=== PATIENT | male | born 1945 | race Caucasian/White ===

== ENCOUNTER 2018-09-09 12:43 | Emergency (ER) | payer MEDICARE ==
[2018-09-09] MEDS ORDERED: POTASSIUM CHLORIDE 20 MEQ TABLET PO ONE ×2 (13:08→15:50)
[2018-09-09] MEDS ORDERED: SOD CHLOR 0.9% WITH KCL 40MEQ 40 MEQ/1,000 ML IV.SOLN IV ONE (13:08)
--- NOTE | 2018-09-09 13:12 | Emergency Department Record ---
History of Present Illness - General Chief complaint: General Stated complaint: LOW POTASSIUM Time Seen by Provider: 09/09/18 12:50 Source: Patient, Family Mode of Arrival: Ambulatory Limitations: No limitations - History of Present Illness Initial comments: The patient is here with family due to generalized weakness for about a month. He has been having problems with low potassium recently due to chronic diarrhea and being placed on Lasix due to leg edema. The patient was [place] [facility] [place] 2 days ago due to a K+ of 2.0. He received IV replacement and was sent home. Today he had it rechecked as an outpatient and it was 2.4 so his ordering physi monica from [facility] sent him to the ER. The patient denies any pain, fever, nausea, vomiting or confusion. He does have a hx of Multiple Myeloma and his last chemo was a month ago. MD Complaint: Generalized weakness Onset/Timin -: Month(s) Location: Generalized - Chong Coma Scale Eye Response: (4) Open spontaneously Motor Response: (6) Obeys commands Verbal Response: (5) Oriented Gile Total: 15 - Related Data Home Medications Medication Instructions Recorded Confirmed Last Taken Aspirin [Ecotrin] 81 mg PO DAILY 09/09/18 09/09/18 09/09/18 Cephalexin [Keflex] 500 mg PO QID 09/09/18 09/09/18 09/09/18 Dexamethasone 20 mg PO WEEKLY 09/09/18 09/09/18 3 Weeks Ago ~08/19/18 Diphenhydramine HCl [Benadryl] 25 mg PO Q12HR PRN 09/09/18 09/09/18 Unknown Diphenoxylate HCl/Atropine 1 tab PO TID 09/09/18 09/09/18 09/09/18 [Diphenoxylate-Atrop 2.5-0.025] Escitalopram Oxalate [Lexapro] 10 mg PO DAILY 09/09/18 09/09/18 09/09/18 Gabapentin [Neurontin] 200 mg PO TID 09/09/18 09/09/18 09/09/18 Glucos Sul 2Kcl/MSM/Chond/C/Mn 1 cap PO DAILY 09/09/18 09/09/18 09/09/18 [Glucosamine Chondroitin Cap] Hydrocodone/Acetaminophen [[place] 1 tab PO DAILY PRN 09/09/18 09/09/18 Unknown 5-325 Tablet] Lenalidomide [Revlimid] 5 mg PO DAILY 09/09/18 09/09/18 09/09/18 Ondansetron HCl [Zofran] 4 mg PO Q6HR PRN 09/09/18 09/09/18 Unknown Pantoprazole Sodium [Protonix] 40 mg PO DAILY 09/09/18 09/09/18 09/09/18 Prochlorperazine Maleate 10 mg PO DAILY 09/09/18 09/09/18 09/09/18 Allergies Allergy/AdvReac Type Severity Reaction Status Date / Time No Known Drug Allergies Allergy Verified 09/09/18 13:00 Travel Screening - Travel/Exposure Within Last 30 Days Have you traveled within the last 30 days?: No - Travel Symptoms Symptom Screening: None Review of Systems Constitutional: Reports: Malaise. Denies: Chills, Fever Eyes: Denies: Eye discharge ENT: Denies: Congestion Respiratory: Denies: Cough Cardiovascular: Denies: Arrhythmia, Chest pain Endocrine: Reports: Fatigue Gastrointestinal: Denies: Nausea Genitourinary: Denies: Dysuria Musculoskeletal: Denies: Arthralgia Skin: Denies: Bruising Past Medical History - SOCIAL HISTORY Smoking Status: Former smoker Alcohol Use: Rare Drug Use: Occasional Drug Use Detail:: Marijuana - RESPIRATORY Hx Respiratory Disorders: No - CARDIOVASCULAR Hx Cardio Disorders: No - NEURO Hx Neuro Disorders: No - GI Hx GI Disorders: Yes Hx Reflux: Yes - Hx Genitourinary Disorders: Yes Hx Renal Disease: Yes (renal failure) - ENDOCRINE Hx Endocrine Disorders: No - MUSCULOSKELETAL Hx Musculoskeletal Disorders: Yes Hx Arthritis: Yes - PSYCH Hx Psych Problems: Yes Hx Anxiety: Yes Hx Depression: Yes - HEMATOLOGY/ONCOLOGY Hx Hematology/Oncology Disorders: Yes Hx Cancer: Yes (multiple myleoma) Hx Chemotherapy: Yes Hx Radiation Therapy: No Family Medical History Any Significant Family History?: No Physical Exam - General General Appearance: Alert, Oriented x3, Cooperative, No acute distress - Head Head exam: Atraumatic, Normocephalic - Eye Eye exam: Normal appearance, PERRL - ENT Throat exam: Normal inspection. negative: Tonsillar erythema, Tonsillar exudate - Neck Neck exam: Normal inspection, Full ROM. negative: Tenderness - Respiratory Respiratory exam: Normal lung sounds bilaterally. negative: Respiratory distress - Cardiovascular Cardiovascular Exam: Regular rate, Normal rhythm, Normal heart sounds - GI/Abdominal GI/Abdominal exam: Soft, Normal bowel sounds. negative: Tenderness - Extremities Extremities exam: Normal inspection, Full ROM, Normal capillary refill. negative: Tenderness - Neurological Neurological exam: Alert, Normal gait, Oriented X3. negative: Abnormal gait, Altered, Motor sensory deficit - Psychiatric Psychiatric exam: negative: Anxious - Skin Skin exam: negative: Rash Course Vital Signs 09/09/18 09/09/18 12:49 13:04 Temperature 98.7 F Pulse Rate [ 76 Pulse Ox Probe] Respiratory 18 18 Rate Blood Pressure 122/78 [Left Arm] Pulse Ox 98 - Reevaluation(s) Reevaluation #1: The patient is stable at this time with normal vital signs. On recheck his K+ is only up to 2.5 and his Mg is low normal. I believe the patient will need a short stay admission to correct his electrolyte issues and since he is followed at [facility] I do feel the best course of action is to transfer him to [facility]. I then did discuss the case with Dr. Lundy who did accept him to [facility] [place]. 09/09/18 15:48 Medical Decision Making - Data Complexity MDM Data: Labs Ordered and/or Reviewed, EKG Ordered and/or Reviewed - Lab Data Result diagrams: 09/09/18 15:00 - EKG Data -: EKG Interpreted by Me EKG: No Acute Changes Disposition Disposition: Transfer Clinical Impression: Hypokalemia Disposition: Acute Care Hospital Transfer [place] [facility] [place] For Transfer: Multiple Myeloma Accepting Physician: Nikkie Time Discussed w/Accepting Physician: 15:48 Condition: (2) Stable Forms: Patient Portal Access Time of Disposition: 15:48 Quality - Quality Measures Quality Measures: N/A - Blood Pressure Screening View Details: Yes Does Patient Have Any of the Following: No Blood Pressure Classification: Normal BP Reading Systolic Measurement: 106 Diastolic Measurement: 63 Screening for High Blood Pressure: < Normal BP, F/U Not Required > [G8783]
[2018-09-09 15:20] LABS: CREATININE 1.3 mg/dL (0.7-1.2)
== END 2018-09-09 17:49 | disposition short-term general hospital (02) ==
LOC: ER 12:43
DX: E87.6 Hypokalemia (principal); R53.1 Weakness; R19.7 Diarrhea, unspecified; C90.00 Multiple myeloma not having achieved remission; Z87.891 Personal history of nicotine dependence
CPT/HCPCS: 80048; 83735; 85027; 93005; 93010; 96365; 96366; 99285

== ENCOUNTER 2018-09-13 11:58 | Emergency (ER) | payer MEDICARE ==
--- NOTE | 2018-09-13 12:22 | Emergency Department Record ---
History of Present Illness - General Chief Complaint: Fever Stated Complaint: FEVER/CANCER PATIENT Time Seen by Provider: 09/13/18 11:59 Source: Patient, Family Mode of Arrival: Ambulatory Limitations: No limitations - History of Present Illness Initial Comments: The patient is here due to developing a fever or 101.8 last evening. This AM the temp was 100.8 orally. The patient has a hx of Multiple Myeloma and his last Chemo was a month ago. He was just admitted to [facility] for 2 days due to Hypokalemia and was discharged 2 days ago. The patient denies any cough, dysuria, neck pain, or ST but he has had a mild BARAJAS with chills. The patient states he has had the BARAJAS since receiving IV potassium in the hospital. Additionally the patient has had mild foot swelling and has had a fungal rash to the feet for 2 weeks. The patient has had no Acetaminophen today. MD Complaint: Fever, Malaise, Weakness Onset/Timin -: Days(s) Maximum Temperature: 101 F Temperature Source: Oral Context: On chemotherapy Associated Symptoms: Chills, Weight loss Treatments Prior to Arrival: Acetaminophen - Related Data Allergies Allergy/AdvReac Type Severity Reaction Status Date / Time No Known Drug Allergies Allergy Verified 09/09/18 13:00 Travel Screening - Travel/Exposure Within Last 30 Days Have you traveled within the last 30 days?: No Review of Systems Constitutional: Reports: Chills, Fever, Malaise Eyes: Denies: Eye discharge ENT: Denies: Congestion Respiratory: Denies: Cough Cardiovascular: Denies: Arrhythmia, Chest pain Endocrine: Reports: Fatigue Gastrointestinal: Denies: Nausea Genitourinary: Denies: Dysuria Musculoskeletal: Denies: Arthralgia Skin: Denies: Bruising Past Medical History - SOCIAL HISTORY Smoking Status: Former smoker - RESPIRATORY Hx Respiratory Disorders: No - CARDIOVASCULAR Hx Cardio Disorders: No - NEURO Hx Neuro Disorders: No - GI Hx GI Disorders: Yes Hx Reflux: Yes - Hx Genitourinary Disorders: Yes Hx Renal Disease: Yes (renal failure) - ENDOCRINE Hx Endocrine Disorders: No - MUSCULOSKELETAL Hx Musculoskeletal Disorders: Yes Hx Arthritis: Yes - PSYCH Hx Psych Problems: Yes Hx Anxiety: Yes Hx Depression: Yes - HEMATOLOGY/ONCOLOGY Hx Hematology/Oncology Disorders: Yes Hx Cancer: Yes (multiple myleoma) Hx Chemotherapy: Yes Hx Radiation Therapy: No Family Medical History Any Significant Family History?: No Physical Exam - General General Appearance: Alert, Oriented x3, Cooperative, No acute distress - Head Head exam: Atraumatic, Normocephalic - Eye Eye exam: Normal appearance, PERRL - ENT Throat exam: Normal inspection. negative: Tonsillar erythema, Tonsillar exudate - Neck Neck exam: Normal inspection, Full ROM. negative: Meningismus, Tenderness - Respiratory Respiratory exam: Normal lung sounds bilaterally. negative: Respiratory distress - Cardiovascular Cardiovascular Exam: Regular rate, Normal rhythm, Normal heart sounds - GI/Abdominal GI/Abdominal exam: Soft, Normal bowel sounds. negative: Tenderness - Extremities Extremities exam: negative: Normal inspection (There is a manju erythematous rash to the tops of the feet that appears to be fungal.), Tenderness - Back Back exam: Reports: Normal inspection - Neurological Neurological exam: Alert, Normal gait. negative: Abnormal gait, Motor sensory deficit - Psychiatric Psychiatric exam: negative: Anxious Course Vital Signs 09/13/18 12:03 Temperature 99.8 F H Pulse Rate 100 H Respiratory 18 Rate Blood Pressure 125/83 Pulse Ox 99 - Reevaluation(s) Reevaluation #1: The patient is doing OK at this time. His repeat temp is 98.8 orally and he denies any new problems or issues. I did discuss the case with the patient's Oncologist Dr. Norton and he does recommend transfer to [facility] for admission. Dr. Norton would like to hold off on any Abx's at this time. 09/13/18 13:46 Reevaluation #2: I did discuss the case with Dr. Lundy who is the accepting physician at [facility] and he does accept the patient in transfer as a direct admission. 09/13/18 13:56 Medical Decision Making - Data Complexity [facility] Data: Labs Ordered and/or Reviewed, X-Ray Ordered and/or Reviewed - Lab Data Result diagrams: 09/13/18 12:30 09/13/18 12:30 - Radiology Data Radiology results: Report reviewed (CXR: Neg for any acute changes.) Disposition Disposition: Transfer Clinical Impression: Fever and chills Disposition: Acute Care Hospital Transfer Transfer To: [facility] Reason For Transfer: Oncology Accepting Physician: Nikkie Time Discussed w/Accepting Physician: 13:57 Condition: (2) Stable Forms: Patient Portal Access Time of Disposition: 13:57 Quality - Quality Measures Quality Measures: N/A - Blood Pressure Screening View Details: Yes Does Patient Have Any of the Following: No Blood Pressure Classification: Pre-Hypertensive BP Reading Systolic Measurement: 125 Diastolic Measurement: 83 Screening for High Blood Pressure: < Pre-Hypertensive BP, F/U Documented > [G8950] Pre-Hypertensive Follow-up Interventions: Referral to alternative/primary care provider.
[2018-09-13 12:42] LABS: ABSOLUTE NEUTROPHIL COUNT 5.21; HEMATOCRIT 26.8 % (42.0-52.0); HEMOGLOBIN 8.7 gm/dl (14.0-18.0); MEAN CELL VOLUME 97.5 fl (81-97); MEAN CORPUSCULAR HEMOGLOBIN 31.6 pg (27-33); MEAN CORPUSCULAR HGB CONC 32.5 g/dl (32-36); MEAN PLATELET VOLUME 9.4 fl (7.4-10.4); PLATELET COUNT 222 K/uL (130-400); RED BLOOD COUNT 2.75 M/uL (4.40-5.70); RED CELL DISTRIBUTION WIDTH 15.6 % (11.5-14.5); WHITE BLOOD COUNT W/O DIFF 6.5 K/uL (4.2-12.2)
[2018-09-13 12:51] LABS: HYPOCHROMIA 1+; PLATELET ESTIMATE NORMAL (NORMAL)
[2018-09-13 13:17] LABS: URINE APPEARANCE CLEAR; URINE BILIRUBIN NEGATIVE (NEGATIVE); URINE BLOOD SMALL (NEGATIVE); URINE COLOR YELLOW; URINE GLUCOSE (UA) NEGATIVE (NEGATIVE); URINE KETONE NEGATIVE (NEGATIVE); URINE LEUKOCYTE ESTERASE NEGATIVE (NEGATIVE); URINE NITRITE NEGATIVE (NEGATIVE); URINE UROBILINOGEN 0.2 E.U./dL (0.20 - 1.00)
[2018-09-13 13:18] LABS: BLOOD UREA NITROGEN 17 mg/dL (8-23)
[2018-09-13 13:19] LABS: CREATININE 1.2 mg/dL (0.7-1.2); EST GLOMERULAR FILTRATION RATE > 60 mL/min; TOTAL PROTEIN 5.7 g/dL (6.6-8.7)
[2018-09-13 13:21] LABS: GLUCOSE,RANDOM 106 mg/dL (74-109)
[2018-09-13 13:23] LABS: ALT/SGPT 33 U/L (<41)
[2018-09-13 13:24] LABS: ALBUMIN 3.3 g/dL (4.0-5.0); ALKALINE PHOSPHATASE 51 U/L (40-129); AST/SGOT 21 U/L (10.0-50.0); BILIRUBIN,DIRECT < 0.2 mg/dL (0-0.3); C-REACTIVE PROTEIN 5.68 mg/dL (<0.5)
[2018-09-13 13:28] LABS: URINE BACTERIA FEW; URINE EPITHELIAL CELLS 0 - 2 (FEW); URINE WBC 0 - 2 (0-2/hpf)
--- NOTE | 2018-09-14 14:08 | RADIOLOGY REPORT ---
EXAM: CHEST, TWO VIEWS HISTORY: FEVER. OCCASIONAL COUGH. MULTIPLE MYELOMA HISTORY. TECHNIQUE: Upright PA and lateral views of the chest were obtained. Comparison: None. FINDINGS: The lung volumes are low with mild elevation of the right hemidiaphragm. There is interposition of the hepatic flexure of the colon between the right hemidiaphragm and liver. The heart is likely normal in size. No pulmonary venous hypertension is seen. The thoracic aorta is tortuous and atherosclerotic. There is a possible hiatal hernia. Minor patchy opacities are noted within the right lung base causing ill definition of the right hemidiaphragm likely relating to atelectasis rather than infiltrate. The lungs and pleural spaces are otherwise clear. There are degenerative changes of the visualized spine and shoulder girdles. Surgical anchors are noted in the proximal right humerus. No definite lytic bone lesion. IMPRESSION: 1. LOW LUNG VOLUMES. MINOR PATCHY OPACITY IN THE RIGHT BASE CONSISTENT WITH ATELECTASIS. 2. TORTUOUS ATHEROSCLEROTIC THORACIC AORTA. JOB NUMBER: [id number] [facility]
== END 2018-09-13 15:40 | disposition short-term general hospital (02) ==
LOC: ER 11:58
DX: R50.9 Fever, unspecified (principal); R51 Headache; R53.1 Weakness; C90.00 Multiple myeloma not having achieved remission; Z87.891 Personal history of nicotine dependence
CPT/HCPCS: 71046; 80048; 80076; 81001; 84145; 85027; 86140; 99285